=== PATIENT | female | born 1990 | race American Indian/Alaskan Native ===

== ENCOUNTER 2018-02-16 13:15 | Inpatient (IN) | payer OTHER ==
[2018-02-16] MEDS ORDERED: NACL 0.9% 1000 ML 1,000 ML ONE ×2 (14:01→17:23)
[2018-02-16] MEDS ORDERED: NACL 0.9% IV ONE (14:25)
[2018-02-16] MEDS ORDERED: ZOSYN/NS 4.5GM/100ML 4.5 GM/100 ML VIAL IV ONE (15:01)
[2018-02-16] MEDS ORDERED: NACL 0.9% 1000 ML IV ONE (15:32)
[2018-02-16] MEDS ORDERED: TYLENOL PO PRN (15:32)
[2018-02-16] MEDS ORDERED: VANCOMYCIN 1,500 MG in NACL 0.9% 500 ML 500 ML IV ONE ×2 (15:32→17:00)
[2018-02-16] MEDS ORDERED: SODIUM CHLORIDE FLUSH SYRINGE 10 ML IV PRN (15:32)
[2018-02-16] MEDS ORDERED: PROVENTIL IH PRN (15:32)
--- NOTE | 2018-02-16 15:32 | History and Physical Report ---
History of Present Illness Chief complaint: My side hurts History of present illness: 27 YO Female with No PMH presents to ED for evaluation. Pt states that she has experienced right flank pain over the past 1 day with worsening symptoms over the same time frame. Pt also acknowledges nausea, and multiple episodes of vomiting, subjective fever, chills. Pt seen and evaluated in ED and found to have UTI complicated by sepsis. PT admitted to medical floor and initiated on sepsis protocol. No reports of CP, Palpitations, Trauma, Skin Rash, Productive cough, Unilateral leg swelling, calf pain, hemomptysis, individual/family history of DVT/PE, shortness of breath, or recent ill contacts. Past History Past Medical History: No medical history, other (reviewed) Past Surgical History: No surgical history, Other (reviewed) Social history: single. denies: smoking, alcohol abuse, prescription drug abuse Family history: no significant family history, other (reviewed) Medications and Allergies Allergies Allergy/AdvReac Type Severity Reaction Status Date / Time No Known Allergies Allergy Unverified 02/16/18 13:42 Home Medications Medication Instructions Recorded Confirmed Last Taken Type Norgestimate-Ethinyl Estradiol 1 each PO DAILY 02/16/18 02/16/18 Unknown History [Sprintec 28 Day Tablet] Active Meds: Active Medications Sodium Chloride (Nacl 0.9% 500 Ml) 2,000 mls @ 999 mls/hr IV BOLUS ONE Stop: 02/16/18 16:25 Last Admin: 02/16/18 14:36 Dose: 999 mls/hr Review of Systems Constitutional: fever, chills, no weight loss, no weight gain Ears, nose, mouth and throat: no ear pain, no ear discharge, no tinnitis, no decreased hearing, no nose pain, no nasal congestion, no nasal discharge Breasts: no change in shape, no swelling, no mass Cardiovascular: no chest pain, no orthopnea, no palpitations, no rapid/ irregular heart beat, no edema Respiratory: no cough, no cough with sputum, no excessive sputum, no hemoptysis , no shortness of breath Gastrointestinal: nausea, vomiting, no hematemesis, no coffee ground emesis, no BRBPR, no melena, no hematochezia, no loss of appetite, no early satiety, no heartburn Genitourinary Female: flank pain, dysuria, no urinary frequency, no urgency, no stress incontinence, no post void dribbling, no incomplete emptying Rectal: no pain, no incontinence, no bleeding Musculoskeletal: no neck stiffness, no neck pain, no shooting arm pain, no arm numbness/tingling, no low back pain, no shooting leg pain Integumentary: no rash, no pruritis, no redness, no sores, no wounds, no jaundice Neurological: no head injury, no transient paralysis, no paralysis, no weakness , no parathesias, no numbness, no tingling, no seizures Psychiatric: no anxiety, no memory loss, no insomnia, no hypersomnia Endocrine: no cold intolerance, no heat intolerance, no polyphagia, no excessive thirst, no polydipsia Hematologic/Lymphatic: no easy bruising, no easy bleeding, no lymphadenopathy, no lymphedema Allergic/Immunologic: no urticaria, no allergic rhinitis, no wheezing, no persistent infections, no anaphylaxis, no angioedema Exam - Constitutional Vitals: Temp Pulse Resp BP Pulse Ox 102.3 F H 98 H 21 125/65 99 02/16/18 13:32 02/16/18 13:32 02/16/18 13:32 02/16/18 13:32 02/16/18 13:32 General appearance: Present: mild distress - EENT Eyes: Present: PERRL ENT: hearing intact, clear oral mucosa - Neck Neck: Present: supple, normal ROM - Respiratory Respiratory effort: normal Respiratory: bilateral: CTA - Cardiovascular Heart Sounds: Present: S1 & S2. Absent: rub, click - Extremities Extremities: pulses symmetrical, No edema Peripheral Pulses: abnormal (capillary refill greater than 3.6 seconds) - Abdominal General gastrointestinal: Present: soft, non-tender, non-distended, normal bowel sounds Female genitourinary: Present: normal - Integumentary Integumentary: Present: clear, warm, dry - Musculoskeletal Musculoskeletal: generalized weakness - Psychiatric Psychiatric: appropriate mood/affect, intact judgment & insight - Neurologic Neurologic: CNII-XII intact, moves all extremities Results - Labs CBC & Chem 7: 02/16/18 15:05 02/16/18 15:05 Assessment and Plan - Patient Problems (1) Sepsis Current Visit: Yes Status: Acute Qualifiers: Sepsis type: sepsis due to unspecified organism Qualified Code(s): A41.9 - Sepsis, unspecified organism Plan to address problem: IV antibiotics, IVF resuscitation, monitor uop q shift, blood cultures, urinalysis, chest x ray, HIV Rapid, serial lactic acid level, CBC, CMP (2) UTI (urinary tract infection) Current Visit: Yes Status: Acute Qualifiers: Encounter type: initial encounter Plan to address problem: IV antibiotic therapy, monitor uop w shift, Urinalysis and culture (3) DVT prophylaxis Current Visit: Yes Status: Acute Plan to address problem: SCD to BLE while in bed.
[2018-02-16] MEDS: TYLENOL PR ONE ×2 (15:34→16:41)
[2018-02-16 15:37] LABS: Basophils % (Auto) 0.4 % (0.0-1.8); Eosinophils % (Auto) 0.1 % (0.0-4.3); Hemoglobin 11.2 gm/dl (10.1-14.3); Lymphocytes # (Auto) 0.6 K/mm3 (1.2-5.4); Lymphocytes % (Auto) 7.9 % (13.4-35.0); Mean Corpuscular HGB Conc 34 % (30-34); Mean Corpuscular Hemoglobin 30 pg (28-32); Mean Corpuscular Volume 88 fl (79-97); Monocytes # (Auto) 0.7 K/mm3 (0.0-0.8); Monocytes % (Auto) 10.5 % (0.0-7.3); Platelet Count 216 K/mm3 (140-440); Red Blood Count 3.74 M/mm3 (3.65-5.03); Red Cell Distribution Width 12.7 % (13.2-15.2)
[2018-02-16 15:44] LABS: INR 1.08 (0.87-1.13)
[2018-02-16 15:58] LABS: Alanine Aminotransferase 65 units/L (7-56); Albumin 3.7 g/dL (3.9-5); BUN/Creatinine Ratio 10; Blood Urea Nitrogen 8 mg/dL (7-17); Calcium 8.2 mg/dL (8.4-10.2); Hemolysis Index 0
--- NOTE | 2018-02-16 16:10 | Emergency Department Report ---
ED General Adult HPI - General Chief complaint: Syncope Stated complaint: SHAKING/WEAKNESS/SYNCOPE Time Seen by Provider: 02/16/18 14:25 Source: patient, family Mode of arrival: Ambulatory Limitations: No Limitations - History of Present Illness Initial comments: 27-year-old female with febrile illness. She complained of right flank pain since yesterday. She started vomiting today. She has no prior history of UTI. She has no prior medical history. She's never been hospitalized. He had no surgical procedures. She is not give a lot of history at this time. She is here with her mother and other family member perhaps a grandmother. She states that she has some chills today. Patient has not been complaining of headache or neck discomfort. She had no respiratory symptoms. As far as I can ascertain her history is restricted to right flank pain without abdominal pain as well as vomiting fever and chills. On arrival the nurse called a code sepsis and wero blood. She later told me about the patient who I immediately saw. She states that she gave the color laboratory technician the blood samples. However there has been a delay in the reporting of her laboratory values and in collecting Specimen. At this point the lab tests are running any urine is grossly purulent. I did do a bedside ultrasound. I did not see any gallstones. Awaiting interpretation. Severity scale (0 -10): 0 - Related Data Allergies Allergy/AdvReac Type Severity Reaction Status Date / Time No Known Allergies Allergy Unverified 02/16/18 13:42 ED Review of Systems ROS: Stated complaint: SHAKING/WEAKNESS/SYNCOPE Other details as noted in HPI Comment: Unobtainable due to pts medical conditions (very limited secondary to the patient's condition obtained basically secondhand from family) ED Past Medical Hx - Past Medical History Previous Medical History?: No - Surgical History Past Surgical History?: No - Social History Smoking Status: Never Smoker Substance Use Type: None ED Physical Exam - General Limitations: Other (ill-appearing) General appearance: in no apparent distress, other (appears volume depleted.) - Head Head exam: Present: atraumatic, normocephalic - Eye Eye exam: Present: normal appearance, PERRL, EOMI. Absent: scleral icterus - ENT ENT exam: Present: mucous membranes moist - Neck Neck exam: Present: normal inspection. Absent: tenderness, meningismus - Respiratory Respiratory exam: Present: normal lung sounds bilaterally. Absent: respiratory distress - Cardiovascular Cardiovascular Exam: Present: regular rate, normal rhythm. Absent: systolic murmur, diastolic murmur, rubs, gallop - GI/Abdominal GI/Abdominal exam: Present: soft, normal bowel sounds. Absent: distended, tenderness, guarding, rebound, rigid - Extremities Exam Extremities exam: Present: normal inspection - Back Exam Back exam: Present: normal inspection - Neurological Exam Neurological exam: Present: alert, oriented X3, CN II-XII intact. Absent: motor sensory deficit - Psychiatric Psychiatric exam: Present: normal affect, normal mood - Skin Skin exam: Present: warm, dry, intact, normal color. Absent: rash ED Course Vital Signs 02/16/18 13:32 Temperature 102.3 F H Pulse Rate 98 H Respiratory 21 Rate Blood Pressure 125/65 O2 Sat by Pulse 99 Oximetry - Reevaluation(s) Reevaluation #1: IV fluids. I started Zosyn. Dr. Chawla followed with vancomycin. The urine looks turbid. I didn't see any gallstones on the bedside ultrasound. However report is still pending. My working diagnosis is acute pyelonephritis/sepsis. 02/16/18 16:11 ED Medical Decision Making - Lab Data Result diagrams: 02/16/18 15:05 02/16/18 15:05 Laboratory Results - last 24 hr 02/16/18 02/16/18 02/16/18 15:05 15:05 15:05 WBC 7.0 RBC 3.74 Hgb 11.2 Hct 33.0 MCV 88 MCH 30 MCHC 34 RDW 12.7 L Plt Count 216 Lymph % (Auto) 7.9 L [place] % (Auto) 10.5 H Eos % (Auto) 0.1 Baso % (Auto) 0.4 Lymph # 0.6 L [place] # 0.7 Eos # 0.0 Baso # 0.0 Seg Neutrophils % 81.1 H Seg Neutrophils # 5.7 PT 14.6 INR 1.08 APTT 26.0 VBG pH Sodium 138 Potassium 3.9 Chloride 101.8 Carbon Dioxide 23 Anion Gap 17 BUN 8 Creatinine 0.8 Estimated GFR > 60 BUN/Creatinine Ratio 10 Glucose 92 Lactic Acid Calcium 8.2 L Total Bilirubin 0.90 AST 56 H ALT 65 H Alkaline Phosphatase 121 Total Protein 7.0 Albumin 3.7 L Albumin/Globulin Ratio 1.1 HCG, Qual 02/16/18 02/16/18 02/16/18 15:05 15:05 15:05 WBC RBC Hgb Hct MCV MCH MCHC RDW Plt Count Lymph % (Auto) [place] % (Auto) Eos % (Auto) Baso % (Auto) Lymph # [place] # Eos # Baso # Seg Neutrophils % Seg Neutrophils # PT INR APTT VBG pH 7.401 Sodium Potassium Chloride Carbon Dioxide Anion Gap BUN Creatinine Estimated GFR BUN/Creatinine Ratio Glucose Lactic Acid 0.60 L Calcium Total Bilirubin AST ALT Alkaline Phosphatase Total Protein Albumin Albumin/Globulin Ratio HCG, Qual Negative Critical care attestation.: If time is entered above; I have spent that time in minutes in the direct care of this critically ill patient, excluding procedure time. ED Disposition Clinical Impression: Acute pyelonephritis Disposition: OP ADMIT IP TO THIS HOSP Is pt being admited?: Yes Does the pt Need Aspirin: No Condition: Stable Referrals: PRIMARY CARE, [Primary Care Provider] - 3-5 Days Time of Disposition: 16:15
[2018-02-16] MEDS ORDERED: TYLENOL ONE (16:13)
[2018-02-16] MEDS ORDERED: TYLENOL PO ONE (16:37)
[2018-02-16 16:50] LABS: Bacteria,Urine 2+ /HPF (Negative); Bilirubin,Urine NEG (Negative); Blood,Urine LG (Negative); Color,Urine Amber (Yellow); Mucus,Urine FEW /HPF
[2018-02-16 16:51] LABS: HCG Qualitative,Urine Negative (Negative); RBC,Urine > 182.0 /HPF (0.0-6.0); WBC,Urine > 182.0 /HPF (0.0-6.0)
--- NOTE | 2018-02-16 17:13 | Cat Scan Report ---
FINAL REPORT PROCEDURE: CT HEAD/BRAIN WO CON TECHNIQUE: Computerized tomography of the head was performed without contrast material. HISTORY: confusion COMPARISON: No prior studies are available for comparison. FINDINGS: Brain: Brain density appears normal. No evidence of intracranial hemorrhage. No parenchymal hemorrhage, mass lesions or mass effect are seen. No abnormal extraxial fluid collects or masses are seen. Ventricles: Ventricles are normal size and are midline. Bone Windows: No evidence of skull fracture. Paranasal sinuses: Minimal mucosal thickening seen anteriorly in the right side of the sphenoid sinus. Visualized paranasal sinuses otherwise appear clear. Mastoid air cells: Clear IMPRESSION: Negative unenhanced CT scan of the brain Trace paranasal sinus disease as described
--- NOTE | 2018-02-16 17:21 | XRay Report ---
FINAL REPORT PROCEDURE: Portable semi upright chest x-ray TECHNIQUE: Chest radiograph anteroposterior view. CPT 41905 HISTORY: possible Sepsis COMPARISON: No prior studies are available for comparison. FINDINGS: Heart: Normal size. Mediastinum/Vessels: Normal. Lungs/Pleural space: Clear.. Bony thorax: No acute osseous abnormality. Life support devices: None. IMPRESSION: Negative exam.
--- NOTE | 2018-02-16 17:27 | Ultrasound Report ---
FINAL REPORT PROCEDURE: US ABDOMEN COMPLETE TECHNIQUE: Real-time sonography in multiple planes of the abdomen was performed with image documentation. CPT 22923 HISTORY: sepsis, flank pain COMPARISON: No prior studies are available for comparison. FINDINGS: Examination the right upper quadrant shows diffuse increased echogenicity throughout the gallbladder casting acoustic shadows. Gallbladder appears slightly contracted. Multiple gallstones appear to be filling the gallbladder. Gallbladder was not tender to palpation. No ascites is seen. Gallbladder wall does not appear to be thickened. Common bile duct is normal caliber measuring 2.8 millimeters. Liver echogenicity appears normal. No masses are identified. No ascites is seen. Visualized portions of the pancreas appear normal. Proximal abdominal aorta appear normal. The entire abdominal aorta was not visualized. Visualized portion of the inferior vena cava is unremarkable. The spleen is not enlarged only measuring 7.6 centimeters greatest diameter. Hypoechoic nodule with increased through sound transmission and enhancement of its posterior wall visualized although there is additional thin linear band of increased echogenicity traversing this nodule. Subtle internal echoes are also present. Echogenicity the renal cortex bilaterally appears mildly diffusely increased. I cannot exclude chronic renal parenchymal disease. Small focal echogenic foci seen lower 3rd left kidney measuring 3.9 millimeters without acoustic shadowing. This could be an artifact from cortical medullary junction. Small nonobstructing calculus not excluded. No hydronephrosis. No abnormal perinephric fluid collections are visualized. The right kidney measures 10.9 centimeters greatest length left kidney 11.9 centimeters greatest length. IMPRESSION: Cholelithiasis. Gallbladder is mildly contracted and appears to be filled with moderate-sized gallstones. Common bile duct is normal caliber. Gallbladder is not tender to palpation. Echogenicity the renal cortex bilaterally mildly diffusely increased. I cannot exclude chronic renal parenchymal disease. Complex cyst visualized left kidney. There appears to be a thin septation and subtle internal echoes as described. I cannot exclude an infected cyst or hemorrhagic cyst. Possible small nonobstructing calculus lower 3rd left kidney as described. There is no hydronephrosis on right or left. Kidneys otherwise are unremarkable..
[2018-02-16 17:30] LABS: Erythrocyte Sedimentation Rate 66 mm/Hr (0-20)
--- NOTE | 2018-02-16 17:52 | Cat Scan Report ---
FINAL REPORT PROCEDURE: CT ABDOMEN PELVIS W CON TECHNIQUE: Computerized axial tomography of the abdomen and pelvis was performed after the IV injection of iodinated nonionic contrast. HISTORY: r flank pain, fever COMPARISON: No prior studies are available for comparison. FINDINGS: Lower Lung clarke: There is minimal dependent atelectasis. Lung bases otherwise are unremarkable. Upper Abdomen: Gallbladder appears contracted and contains multiple moderate-sized calcified gallstones. Gallbladder is otherwise unremarkable. There is mild decreased density in the left lobe of the liver along the right side of the falciform ligament extending anteriorly which is a common area for focal fatty infiltration of the liver. Liver density appears slightly decreased. There may be mild fatty infiltration. The liver is otherwise unremarkable. The adrenal glands, the pancreas and spleen are unremarkable. Kidneys, Ureters and Urinary bladder: There is a 14 millimeter low-density nodule in the left kidney anterior laterally corresponding to the complex cyst seen on the recent ultrasound. The kidneys, the ureters and urinary bladder otherwise are unremarkable. Urinary bladder is only partially filled. Retroperitoneum: Abdominal aorta appears normal. Nonspecific subcentimeter lymph nodes are seen in the retroperitoneum. No pathologically enlarged lymph nodes are identified. Bowel: The right side of the colon is redundant and projects into the left lower quadrant. There is moderate to large amount of stool in the right side of the colon moderate stool in the transverse colon. No evidence of bowel obstruction or ascites. There is no free intraperitoneal gas. The appendix is suboptimally visualized. I suspect this projects in the upper mid pelvis posteriorly. No definite inflammatory changes identified. There is minimal nonspecific fluid in the cul-de-sac. No significant ascites is seen. Reproductive organs: Uterus and adnexa are unremarkable. Other: Mild lumbar scoliosis convex the right apex at L2 visualized. No acute bony abnormalities are seen. IMPRESSION: Cystic lesions seen in the left kidney consistent with the small cysts seen on the abdominal ultrasound performed earlier today. Kidneys are otherwise unremarkable. This small cyst was better visualized on the ultrasound performed earlier today. Please see that report. Cholelithiasis. Mild lumbar scoliosis.
[2018-02-16] MEDS: ZOSYN/NS 4.5GM/100ML 4.5 GM/100 ML VIAL IV SCH (22:53)
[2018-02-16] MEDS: SODIUM CHLORIDE FLUSH SYRINGE 10 ML IV SCH (22:54)
[2018-02-16] MEDS: PERCOCET 5/325 PO PRN (23:48)
[2018-02-17] MEDS: ZOSYN/NS 4.5GM/100ML 4.5 GM/100 ML VIAL IV SCH ×3 (06:48→21:58)
--- NOTE | 2018-02-17 07:33 | Progress Note ---
Assessment and Plan Assessment and plan: 27 YO Female with No PMH presents to ED for evaluation. Pt states that she has experienced right flank pain over the past 1 day with worsening symptoms over the same time frame. Pt also acknowledges nausea, and multiple episodes of vomiting, subjective fever, chills. Pt seen and evaluated in ED and found to have UTI complicated by sepsis. PT admitted to medical floor and initiated on sepsis protocol. No reports of CP, Palpitations, Trauma, Skin Rash, Productive cough, Unilateral leg swelling, calf pain, hemoptysis, individual/family history of DVT/PE, shortness of breath, or recent ill contacts. Sepsis secondary pyelonephritis * IV antibiotics, follow cultures, HIV rapid negative, Acute Pyelonephritis * continue abx, monitor cultures and taper medications. Left kidney cyst * Monitor outpatient CHolelithasis * Monitor, considering mild elevated Transaminitis DVT/GI prophy Plan discussed with patient Discharge in am if no further fever. History Interval history: Patient seen and examined in no acute distress. reports improvement in flank pain. Hospitalist Physical - Physical exam Narrative exam: VITAL SIGNS: Reviewed. GENERAL: The patient appeared well nourished and normally developed. Vital signs as documented. HEAD: No signs of head trauma. EYES: Pupils are equal. Extraocular motions intact. EARS: Hearing grossly intact. MOUTH: Oropharynx is normal. NECK: No adenopathy, no JVD. CHEST: Chest with clear breath sounds bilaterally. No wheezes, rales, or rhonchi. CARDIAC: Regular rate and rhythm. S1 and S2, without murmurs, gallops, or rubs. VASCULAR: No Edema. Peripheral pulses normal and equal in all extremities. ABDOMEN: Soft, without detectable tenderness. No sign of distention. No rebound or guarding, and no masses palpated. Bowel Sounds normal. MUSCULOSKELETAL: Good range of motion of all major joints. Extremities without clubbing, cyanosis or edema. NEUROLOGIC EXAM: Alert and oriented x 3. No focal sensory or strength deficits. Speech normal. Follows commands. PSYCHIATRIC: Mood normal. SKIN: No rash or lesions. - Constitutional Vitals: Temp Pulse Resp BP Pulse Ox 99.6 F 81 16 114/57 98 02/16/18 22:49 02/16/18 22:49 02/17/18 02:13 02/16/18 22:49 02/17/18 02:13 General appearance: Present: mild distress Results - Labs CBC & Chem 7: 02/16/18 15:05 02/16/18 15:05 Labs: Laboratory Last Values WBC 7.0 K/mm3 (4.5-11.0) 02/16/18 15:05 RBC 3.74 M/mm3 (3.65-5.03) 02/16/18 15:05 Hgb 11.2 gm/dl (10.1-14.3) 02/16/18 15:05 Hct 33.0 % (30.3-42.9) 02/16/18 15:05 MCV 88 fl (79-97) 02/16/18 15:05 MCH 30 pg (28-32) 02/16/18 15:05 MCHC 34 % (30-34) 02/16/18 15:05 RDW 12.7 % (13.2-15.2) L 02/16/18 15:05 Plt Count 216 K/mm3 (140-440) 02/16/18 15:05 Lymph % (Auto) 7.9 % (13.4-35.0) L 02/16/18 15:05 [place] % (Auto) 10.5 % (0.0-7.3) H 02/16/18 15:05 Eos % (Auto) 0.1 % (0.0-4.3) 02/16/18 15:05 Baso % (Auto) 0.4 % (0.0-1.8) 02/16/18 15:05 Lymph # 0.6 K/mm3 (1.2-5.4) L 02/16/18 15:05 [place] # 0.7 K/mm3 (0.0-0.8) 02/16/18 15:05 Eos # 0.0 K/mm3 (0.0-0.4) 02/16/18 15:05 Baso # 0.0 K/mm3 (0.0-0.1) 02/16/18 15:05 Seg Neutrophils % 81.1 % (40.0-70.0) H 02/16/18 15:05 Seg Neutrophils # 5.7 K/mm3 (1.8-7.7) 02/16/18 15:05 ESR 66 mm/Hr (0-20) 02/16/18 15:05 PT 14.6 Sec. (12.2-14.9) 02/16/18 15:05 INR 1.08 (0.87-1.13) 02/16/18 15:05 APTT 26.0 Sec. (24.2-36.6) 02/16/18 15:05 VBG pH 7.401 (7.320-7.420) 02/16/18 15:05 Sodium 138 mmol/L (137-145) 02/16/18 15:05 Potassium 3.9 mmol/L (3.6-5.0) 02/16/18 15:05 Chloride 101.8 mmol/L (98-107) 02/16/18 15:05 Carbon Dioxide 23 mmol/L (22-30) 02/16/18 15:05 Anion Gap 17 mmol/L 02/16/18 15:05 BUN 8 mg/dL (7-17) 02/16/18 15:05 Creatinine 0.8 mg/dL (0.7-1.2) 02/16/18 15:05 Estimated GFR > 60 ml/min 02/16/18 15:05 BUN/Creatinine Ratio 10 % 02/16/18 15:05 Glucose 92 mg/dL (65-100) 02/16/18 15:05 Lactic Acid 1.50 mmol/L (0.7-2.0) 02/16/18 21:08 Calcium 8.2 mg/dL (8.4-10.2) L 02/16/18 15:05 Total Bilirubin 0.90 mg/dL (0.1-1.2) 02/16/18 15:05 AST 56 units/L (5-40) H 02/16/18 15:05 ALT 65 units/L (7-56) H 02/16/18 15:05 Alkaline Phosphatase 121 units/L (35-129) 02/16/18 15:05 C-Reactive Protein 7.30 mg/dL (0.00-1.30) H 02/16/18 15:05 Total Protein 7.0 g/dL (6.3-8.2) 02/16/18 15:05 Albumin 3.7 g/dL (3.9-5) L 02/16/18 15:05 Albumin/Globulin Ratio 1.1 % 02/16/18 15:05 HCG, Qual Negative (Negative) 02/16/18 15: Urine Color Nathalia (Yellow) 02/16/18 15: Urine Turbidity Clear (Clear) 02/16/18 15: Urine pH 6.0 (5.0-7.0) 02/16/18 15:33 Ur Specific [place] 1.009 (1.003-1.030) 02/16/18 15:33 Urine Protein 100 mg/dl mg/dL (Negative) 02/16/18 15: Urine Glucose (UA) Neg mg/dL (Negative) 02/16/18 15: Urine Ketones Tr mg/dL (Negative) 02/16/18 15:33 Urine Blood Lg (Negative) 02/16/18 15: Urine Nitrite Pos (Negative) 02/16/18: Urine Bilirubin Neg (Negative) 02/16/18 15: Urine Urobilinogen 2.0 mg/dL (<2.0) 02/16/18 15:33 Ur Leukocyte Esterase Lg (Negative) 02/16/18 15: Urine WBC (Auto) > 182.0 /HPF (0.0-6.0) H 02/16/18 15:33 Urine RBC (Auto) > 182.0 /HPF (0.0-6.0) 02/16/18 15: U Epithel Cells (Auto) 2.0 /HPF (0-13.0) 02/16/18 15:33 Urine Bacteria (Auto) 2+ /HPF (Negative) 02/16/18 15:33 Urine WBC Clumps 3+ /HPF 02/16/18 15: Urine Mucus Few /HPF 02/16/18 15: Urine Yeast (Budding) 2+ /HPF 02/16/18 15:33 Urine HCG, Qual Negative (Negative) 02/16/18 15:33 HIV 1&2 Antibody Rapid Non react (Non React) 02/16/18 15:05 HIV P24 Antigen Non react (Non React) 02/16/18 15:05 - Imaging and Cardiology CT scan - pelvis: image reviewed (cholelithasis, cyst in kidney)
[2018-02-17] MEDS: SODIUM CHLORIDE FLUSH SYRINGE 10 ML IV SCH ×2 (14:31→21:58)
[2018-02-17] MEDS: ZOFRAN IV PRN ×2 (15:14→15:15)
[2018-02-17] MEDS: PERCOCET 5/325 PO PRN (15:15)
[2018-02-18] MEDS: ZOSYN/NS 4.5GM/100ML 4.5 GM/100 ML VIAL IV SCH (06:22)
--- NOTE | 2018-02-18 07:15 | Discharge Summary ---
Providers - Providers Date of Admission: 02/16/18 15:49 Attending physician: NORM JONES MD Primary care physician: SCIENCE TECHNICIAN Hospitalization Reason for admission: sepsis Condition: Stable Hospital course: 27 YO Female with No PMH presents to ED for evaluation. Pt states that she has experienced right flank pain over the past 1 day with worsening symptoms over the same time frame. Pt also acknowledges nausea, and multiple episodes of vomiting, subjective fever, chills. Pt seen and evaluated in ED and found to have UTI complicated by sepsis. PT admitted to medical floor and initiated on sepsis protocol. No reports of CP, Palpitations, Trauma, Skin Rash, Productive cough, Unilateral leg swelling, calf pain, hemoptysis, individual/family history of DVT/PE, shortness of breath, or recent ill contacts. patient was treated with pyelonephritis, with noted improvement. Rapid HIV test was negative. she was advised about the noted cholithasis and was advised to follow with surgery outptient. Urine cultures was growing GNR, 10-100,000. she was advised that sensitivity may be different but she wanted to be discharged and will follow final culture with pcp. she remains stable with no further fever and no pyuria. Sepsis secondary pyelonephritis Acute Pyelonephritis Left kidney cyst CHolelithasis Disposition: DC- TO HOME OR SELFCARE Time spent for discharge: 35 mins Core Measure Documentation - Palliative Care Palliative Care/ Comfort Measures: Not Applicable - Core Measures Any of the following diagnoses?: none - VTE Discharge Requirements Deep Vein Thrombosis/Pulmonary Embolism Present on Admission: No Exam - Physical Exam Narrative exam: VITAL SIGNS: Reviewed. GENERAL: The patient appeared well nourished and normally developed. Vital signs as documented. HEAD: No signs of head trauma. EYES: Pupils are equal. Extraocular motions intact. EARS: Hearing grossly intact. MOUTH: Oropharynx is normal. NECK: No adenopathy, no JVD. CHEST: Chest with clear breath sounds bilaterally. No wheezes, rales, or rhonchi. CARDIAC: Regular rate and rhythm. S1 and S2, without murmurs, gallops, or rubs. VASCULAR: No Edema. Peripheral pulses normal and equal in all extremities. ABDOMEN: Soft, without detectable tenderness. No sign of distention. No rebound or guarding, and no masses palpated. Bowel Sounds normal. MUSCULOSKELETAL: Good range of motion of all major joints. Extremities without clubbing, cyanosis or edema. NEUROLOGIC EXAM: Alert and oriented x 3. No focal sensory or strength deficits. Speech normal. Follows commands. PSYCHIATRIC: Mood normal. SKIN: No rash or lesions. - Constitutional Vitals: Temp Pulse Resp BP Pulse Ox 98.5 F 67 16 102/61 99 02/17/18 19:37 02/17/18 19:37 02/17/18 19:37 02/17/18 19:37 02/17/18 19:37 Plan Activity: advance as tolerated, fall precautions Diet: regular Additional Instructions: follow with surgery outpatient to evaluate gallbladder disease. follow with PCP for final urine culture and sensitivity. Follow up with: PRIMARY CAREMD [Primary Care Provider] - 3-5 Days INES EUGENE MD [Staff Physician] - 7 Days Forms: Work/School Release Form Prescriptions: Ciprofloxacin HCl [Ciprofloxacin TAB] 500 mg PO Q12HR #14 tab
[2018-02-18 08:04] VITALS: BP 101/58
[2018-02-18 09:42] LABS: Hematocrit 30.9 % (30.3-42.9); Hemoglobin 10.4 gm/dl (10.1-14.3); Mean Corpuscular HGB Conc 34 % (30-34); Mean Corpuscular Hemoglobin 30 pg (28-32); Mean Corpuscular Volume 88 fl (79-97); Platelet Count 207 K/mm3 (140-440); Red Blood Count 3.51 M/mm3 (3.65-5.03); Red Cell Distribution Width 12.9 % (13.2-15.2)
[2018-02-18 09:55] LABS: Alanine Aminotransferase 36 units/L (7-56); Albumin 3.1 g/dL (3.9-5); BUN/Creatinine Ratio 6; Blood Urea Nitrogen 5 mg/dL (7-17); Calcium 8.1 mg/dL (8.4-10.2); Hemolysis Index 0
== END 2018-02-18 09:35 | disposition home or self-care (01) | DRG 872 ==
LOC: ED 13:15 → 3A 15:49
PROVIDERS: ADMIT Internal Medicine; ATTEND Internal Medicine
DX: A41.9 Sepsis, unspecified organism (principal); N10 Acute pyelonephritis; N28.1 Cyst of kidney, acquired; K80.20 Calculus of gallbladder without cholecystitis without obstruction; B96.20 Unspecified Escherichia coli [E. coli] as the cause of diseases classified elsewhere
CPT/HCPCS: 36415; 70450; 71045; 74177; 76700; 80053; 81001; 81025; 82140; 82805; 84703; 85025; 85027; 85610; 85652; 85730; 86140; 87040; 87076; 87086; 87186; 87806; 93005; 93010; 96365; J2405; J2543; J3370; J7030; J7040; Q9967